=== PATIENT | female | born 2000 | race American Indian/Alaskan Native ===

== ENCOUNTER 2018-04-17 03:50 | Emergency (ER) | payer OTHER ==
--- NOTE | 2018-04-17 04:14 | PDOC ---
History of Present Illness - General Chief Complaint: Vaginal Bleeding Stated Complaint: 12 WKS /VAGINAL BLEED Time Seen by Provider: 04/17/18 04:13 - History of Present Illness Initial Comments: 04/17/18 04:22 Ms. Go is a 17 yo female w/ no pmh at 12 weeks gestation, LMP , confirmed IUP, who presents for evaluation of vaginal bleeding with midline pelvic and back pain since waking up to use the bathroom early this morning. Patient reports she was at her baseline when she went to bed and noticed vaginal bleeding consistent with her period since waking up. Patient describes pain as constant and radiating to her back. Denies any associated symptoms. The patient denies chest pain, shortness of breath, headache and dizziness. Denies fever, chills, nausea, vomit, diarrhea and constipation. Denies dysuria, frequency, urgency and hematuria. Past History - Past Medical History Allergies/Adverse Reactions: Allergies Allergy/AdvReac Type Severity Reaction Status Date / Time No Known Allergies Allergy Verified 04/17/18 04:16 Home Medications: Ambulatory Orders NK [No Known Home Medication] 04/17/18 - Immunization History Immunization Up to Date: Yes - Suicide/Smoking/Psychosocial Hx Smoking History: Never smoked Hx Alcohol Use: No Drug/Substance Use Hx: No Substance Use Type: None Review of Systems - Review of Systems Comments:: 04/17/18 04:29 GENERAL/CONSTITUTIONAL: No fever or chills. No weakness. HEAD, EYES, EARS, NOSE AND THROAT: No change in vision. No ear pain or discharge. No sore throat. CARDIOVASCULAR: No chest pain or shortness of breath RESPIRATORY: No cough, wheezing, or hemoptysis. GASTROINTESTINAL: No nausea, vomiting, diarrhea or constipation. GENITOURINARY: +Midline pelvic pain with vaginal bleeding as described. No dysuria, frequency, or change in urination. MUSCULOSKELETAL: +Back pain as described. No joint or muscle swelling or pain. SKIN: No rash NEUROLOGIC: No headache, vertigo, loss of consciousness, or change in strength/ sensation. ENDOCRINE: No increased thirst. No abnormal weight change HEMATOLOGIC/LYMPHATIC: No anemia, easy bleeding, or history of blood clots. ALLERGIC/IMMUNOLOGIC: No hives or skin allergy. *Physical Exam - Physical Exam Comments: 04/17/18 04:30 GENERAL: Awake, alert, and fully oriented, in no acute distress HEAD: No signs of trauma, normocephalic, atraumatic EYES: PERRLA, EOMI, sclera anicteric, conjunctiva clear ENT: Auricles normal inspection, hearing grossly normal, nares patent, oropharynx clear without exudates. Moist mucosa NECK: Normal ROM, supple, no lymphadenopathy, JVD, or masses LUNGS: No distress, speaks full sentences, clear to auscultation bilaterally HEART: Regular rate and rhythm, normal S1 and S2, no murmurs, rubs or gallops, peripheral pulses normal and equal bilaterally. ABDOMEN: +DOUG Lower abdominal and central pelvic TTP. Otherwise soft, normoactive bowel sounds. No guarding, no rebound. No masses EXTREMITIES: Normal inspection, Normal range of motion, no edema. No clubbing or cyanosis. NEUROLOGICAL: Cranial nerves II through XII grossly intact. Normal speech, normal gait, no focal sensorimotor deficits SKIN: Warm, Dry, normal turgor, no rashes or lesions noted. ED Treatment Course - LABORATORY CBC & Chemistry Diagram: 04/17/18 04:44 04/17/18 04:44 Medical Decision Making - Medical Decision Making 04/17/18 05:14 Ms. Go is a 17 yo female w/ pmh as described who presents for evaluation of symptoms concerning for threatened vs. inevitable vs. other [employer] complaint. Patient requested female [employer] exam so further evaluation in this regard performed by Dr. Cha. Patient will be evaluated with CBC/CMP/PT/INR/ Type and Screen/TVUS. 04/17/18 06:34 Patient currently pending laboratory and US evaluation. Patient given 1L NS and zofran for hydration and nausea relief. Vaginal PE per Dr. Cha notable for vaginal os open to fingertip. Minimal blood in vaginal vault. No CMT. No adnexal tenderness. Patient pending TVUS for further evaluation of status. Patient noted to be O+. No rhogam necessary at this time. 04/17/18 06:40 Patient signed out to Dr. Johnson for further evaluation and care. *DC/Admit/Observation/Transfer Diagnosis at time of Disposition: Threatened - Discharge Dispostion Condition at time of disposition: Fair - Referrals Referrals: Natanael Emerson MD [Primary Care Provider] - - Patient Instructions - Post Discharge Activity
[2018-04-17 04:19] VITALS: BMI 27.8
[2018-04-17] MEDS ORDERED: ACETAMINOPHEN 500 MG TABLET (FP) PO ONE (04:21)
[2018-04-17] MEDS ORDERED: ACETAMINOPHEN 325 MG TABLET (FP) ONE (04:37)
[2018-04-17] MEDS ORDERED: ONDANSETRON 4 MG/2 ML VIAL IVPUSH ONE (04:45)
[2018-04-17] MEDS ORDERED: SODIUM CHLORIDE 1,000 ML IV STA (04:45)
[2018-04-17] MEDS ORDERED: ONDANSETRON 4 MG/2 ML VIAL ONE (04:47)
--- NOTE | 2018-04-17 04:48 | PDOC ---
Attending Attestation - Resident Resident Name: Jarrett Guerra - ED Attending Attestation I have performed the following: I have examined & evaluated the patient, The case was reviewed & discussed with the resident, I agree w/resident's findings & plan - HPI HPI: 04/17/18 04:47 here for vag bleed that began today. She has a 12 week IUP; she had it seen on sono in the past. - Physicial Exam PE: 04/17/18 04:46 Agree with resident exam - Medical Decision Making 04/17/18 04:47 Pt has threatened ab. She will be sent for a sono in the AM when the dept opens. All labs including blood type are pending/. 04/17/18 05:49 CBC normal; INR: 1.2 Chem pending 04/17/18 06:41 Open to fingertip os; minimal brown blood in the vault. Pt denies prior or /instrumentation; so we expect os to be closed in a primigravid. Pt is awaiting rabia in the AM Pt has O+ blood, as she had bleeding last week and she went to her [employer].
[2018-04-17 05:30] LABS: BASO % 0.2 % (0-2.0); EOS % 0.7 % (0-4.5); HEMATOCRIT 34.4 % (32.4-45.2); HEMOGLOBIN 12.6 GM/dL (10.7-15.3); LYMPH % 12.8 % (8-40); MCH 32.8 pg (25.7-33.7); MCHC 36.6 g/dl (32.0-36.0); MEAN CELL VOLUME 89.7 fl (80-96); MONO % 6.8 % (3.8-10.2); NEUT % 79.5 % (42.8-82.8); PLATELET COUNT 211 K/MM3 (134-434); RBC 3.84 M/mm3 (3.60-5.2); WHITE BLOOD COUNT 10.7 K/mm3 (4.0-10.0)
[2018-04-17 05:34] LABS: INR 1.22 (0.83-1.09); PROTHROMBIN TIME (PATIENT) 14.4 SEC (9.7-13.0)
[2018-04-17 06:36] LABS: URINE APPEARANCE CLEAR; URINE BILIRUBIN NEGATIVE (<2.0 mg/dL); URINE COLOR LTYELLOW; URINE GLUCOSE (UA) NEGATIVE (NEGATIVE); URINE KETONE TRACE (NEGATIVE); URINE LEUK ESTERASE TRACE (NEGATIVE); URINE NITRITE NEGATIVE (NEGATIVE); URINE PROTEIN NEGATIVE (NEGATIVE); URINE UROBILINOGEN NEGATIVE mg/dL (0.2-1.0)
[2018-04-17 07:15] LABS: EPI CELLS RARE /HPF (FEW); URINE MUCUS RARE
[2018-04-17 07:26] LABS: ALK PHOS 70 U/L (45-117); ANION GAP 6 MMOL/L (8-16); BILIRUBIN,TOTAL 0.3 mg/dL (0.2-1); BLOOD UREA NITROGEN 8 mg/dL (7-18); CALCIUM 9.7 mg/dL (8.5-10.1); CHLORIDE 107 mmol/L (98-107); CO2 25 mmol/L (21-32); CREATININE 0.6 mg/dL (0.55-1.3); GLUCOSE,RANDOM 90 mg/dL (74-106); POTASSIUM 4.4 mmol/L (3.5-5.1); SGOT/AST 14 U/L (15-37); SGPT/ALT 19 U/L (13-61); SODIUM 138 mmol/L (136-145); TOT PROT 7.6 g/dl (6.4-8.2)
--- NOTE | 2018-04-17 07:32 | PDOC ---
*Physical Exam - Vital Signs Last Vital Signs Temp Pulse Resp BP Pulse Ox 98.7 F 69 16 145/78 97 04/17/18 03:50 04/17/18 03:50 04/17/18 03:50 04/17/18 03:50 04/17/18 03:50 ED Treatment Course - LABORATORY CBC & Chemistry Diagram: 04/17/18 04:44 04/17/18 04:44 - ADDITIONAL ORDERS Additional order review: Laboratory Results 04/17/18 04/17/18 04/17/18 06:26 04:44 04:44 PT with INR INR Sodium 138 Potassium 4.4 Chloride 107 Carbon Dioxide 25 Anion Gap 6 L BUN 8 Creatinine 0.6 Creat Clearance w eGFR > 60 Random Glucose 90 Calcium 9.7 Total Bilirubin 0.3 AST 14 L ALT 19 Alkaline Phosphatase 70 Total Protein 7.6 Albumin 4.0 Urine Color Ltyellow Urine Appearance Clear Urine pH 6.0 Ur Specific Oral 1.013 Urine Protein Negative Urine Glucose (UA) Negative Urine Ketones Trace H Urine Blood 3+ H Urine Nitrite Negative Urine Bilirubin Negative Urine Urobilinogen Negative Ur Leukocyte Esterase Trace Urine WBC (Auto) 8 Urine RBC (Auto) 118 Ur Epithelial Cells Rare Urine Mucus Rare Blood Type O POSITIVE Antibody Screen Negative 04/17/18 04:44 PT with INR 14.40 H INR 1.22 H Sodium Potassium Chloride Carbon Dioxide Anion Gap BUN Creatinine Creat Clearance w eGFR Random Glucose Calcium Total Bilirubin AST ALT Alkaline Phosphatase Total Protein Albumin Urine Color Urine Appearance Urine pH Ur Specific Oral Urine Protein Urine Glucose (UA) Urine Ketones Urine Blood Urine Nitrite Urine Bilirubin Urine Urobilinogen Ur Leukocyte Esterase Urine WBC (Auto) Urine RBC (Auto) Ur Epithelial Cells Urine Mucus Blood Type Antibody Screen 04/17/18 04:44 RBC 3.84 MCV 89.7 MCHC 36.6 H RDW 13.0 MPV 10.0 Neutrophils % 79.5 Lymphocytes % 12.8 Monocytes % 6.8 Eosinophils % 0.7 Basophils % 0.2 - Medications Given in the ED: ED Medications Discontinued Medications Generic Name Dose Route Start Last Admin Trade Name Freq PRN Reason Stop Dose Admin Acetaminophen 1,000 mg 04/17/18 04:21 04/17/18 04:53 Tylenol - PO 04/17/18 04:22 1,000 mg ONCE ONE Administration Sodium Chloride 1,000 mls @ 1,000 mls/hr 04/17/18 04:45 04/17/18 04:54 Normal Saline - IV 04/17/18 05:44 1,000 mls/hr ASDIR STA Administration Ondansetron HCl 4 mg 04/17/18 04:45 04/17/18 04:54 Zofran Injection IVPUSH 04/17/18 04:46 4 mg ONCE ONE Administration Medical Decision Making - Medical Decision Making 04/17/18 07:[address] Guerra. Patient is 17F G1 here today with vaginal bleeding, cervix open to fingertip, likely in progress. Pending labs and US. CBC stable. Blood type O+. Pending US. 04/17/18 09:31 Patient reported increasing abdominal pain. Soft and nontender abdomen, given oxycodone. 04/17/18 11:01 Patient pain improved. US shows normal fetus, HR 140. UA clear. O+ blood. Will discharge. Patient has obgyn follow up with woman to woman. *DC/Admit/Observation/Transfer Diagnosis at time of Disposition: Threatened - Discharge Dispostion Condition at time of disposition: Good Decision to Admit order: No - Referrals Referrals: Natanael Emerson MD [Primary Care Provider] - - Patient Instructions Printed Discharge Instructions: DI for Threatened Additional Instructions: Please follow up with your OBGYN this week. Please return if you have any new, worsening or increasing symptoms, especially increasing pain, fever, and bleeding. - Post Discharge Activity Forms/Work/School Notes: Back to School
[2018-04-17] MEDS ORDERED: oxyCODONE HCL 5 MG TABLET PO ONE (07:49)
[2018-04-17] MEDS ORDERED: oxyCODONE HCL 5 MG TABLET ONE (07:50)
[2018-04-17 08:14] VITALS: BP 123/76; PULSE 76; TEMP 98.1
== END 2018-04-17 11:47 | disposition home or self-care (01) ==
LOC: JER 03:50
PROC: 3E033GC Introduction of Other Therapeutic Substance into Peripheral Vein, Percutaneous Approach (ICD-10-PCS; principal; 2018-04-17)
DX: O26.891 Other specified pregnancy related conditions, first trimester (principal); O20.0 Threatened abortion; Z3A.12 12 weeks gestation of pregnancy
CPT/HCPCS: 36415; 76815-TC; 80053; 81003; 81015; 84702; 85025; 85610; 86850; 86900; 86901; 96374; 99283-25; J7030